=== PATIENT | female | born 1995 | race Caucasian/White ===

== ENCOUNTER 2018-12-06 13:21 | Emergency (ER) | payer MEDICAID ==
--- NOTE | 2018-12-06 14:10 | EDPHY ---
H & P Stated Complaint: vaginal bleeding starting 1300; 6-8 wks ; hx of misc and stillbirth Time Seen by Provider: 12/06/18 13:55 HPI/ROS: CHIEF COMPLAINT: , vaginal spotting HISTORY OF PRESENT ILLNESS: 23-year-old female SAB 1, demise age 27 weeks at last , currently 6-8 weeks with her 1st OBGYN appointment in 3 days, noticed small amount of spotting approximately 1 hr ago while she was at work standing. This has now resolved. No abdominal pain or cramping. Last sexual intercourse was this morning and no had no vaginal bleeding or abdominal pain at that time. She denies recent illness. Denies back or flank pain. Denies fever or chills. Primary gynecology: Dr Dodge at [facility] in [place], [place] REVIEW OF SYSTEMS: 10 systems reviewed and negative with the exception of the elements mentioned in the history of present illness PAST MEDICAL & SURGICAL HISTORY: SAB 1, demise age 27 weeks at last , SOCIAL HISTORY: Nonsmoker PHYSICAL EXAM (Prior to examination, patient consented to physical exam, hands were washed and my usual and customary physical exam procedures followed) 1) GENERAL: Well-developed, well-nourished, alert and oriented. Appears to be in no acute distress. 2) HEAD: Normocephalic, atraumatic 3) HEENT: Pupils equal, round, reactive to light bilaterally. Sclera anicteric. 4) NECK: Full range of motion, no meningeal signs. 5) LUNGS: Clear auscultation bilaterally, no wheezes, no rhonchi, no retractions. 6) HEART: Regular rate and rhythm, no murmur, no heave, no gallop. 7) ABDOMEN: No guarding, no rebound, no focal tenderness, negative McBurney's, negative Rodriguez's, negative Rovsing's, negative peritoneal sign, I am unable to elicit any abdominal pain on exam 8) MUSCULOSKELETAL: Moving all extremities, no focal areas of tenderness, no obvious trauma. No peripheral edema or discoloration. 9) BACK: No CVA tenderness, no midline vertebral tenderness, no fluctuance, no step-off, no obvious trauma, no visual or palpable abnormality. 10) SKIN: No rash, no petechiae. 11) Psychiatric: Patient is oriented X 3, there is no agitation. DIFFERENTIAL DIAGNOSIS: In no particular order in including but not limited to spontaneous , threatened , complete , - Personal History LMP (Females 10-55): Current Tetanus Diphtheria and Acellular Pertussis (TDAP): Yes - Medical/Surgical History Hx Asthma: No Hx Chronic Respiratory Disease: No Hx Diabetes: No Hx Cardiac Disease: No Hx Renal Disease: No Hx Cirrhosis: No Hx Alcoholism: No Hx HIV/AIDS: No Hx Splenectomy or Spleen Trauma: No - Social History Smoking Status: Never smoked Constitutional: Initial Vital Signs Temperature (C) 36.8 C 12/06/18 13:24 Heart Rate 96 12/06/18 13:24 Respiratory Rate 16 12/06/18 13:24 Blood Pressure 144/91 H 12/06/18 13:24 O2 Sat (%) 98 12/06/18 13:24 O2 Delivery Mode Room Air Allergies/Adverse Reactions: No Known Allergies Allergy (Unverified 12/06/18 13:23) Home Medications: Medication Instructions Recorded 12/06/18 Medical Decision Making ED Course/Re-evaluation: 4:06 p.m.: Re-evaluation. Patient resting comfortably. Discussed her diagnostic studies with her. She has been informed of limitations of ultrasonography at this point in her . She already has an appointment with her OBGYN in 2 days I recommend she keep. Recommend pelvic rest. Patient feels comfortable being discharged. All questions and concerns addressed by myself. Patient given my usual and customary discharge precautions and instructions regarding their clinical impression. Care of patient under supervision of primary supervising physician Dr Oliver . - Data Points Laboratory Results: Laboratory Results 12/06/18 14:28 12/06/18 14:28 Departure - Departure Disposition: Home, Routine, Self-Care Clinical Impression: Threatened Condition: Fair Instructions: Threatened Miscarriage (ED) Additional Instructions: If you develop abdominal pain, vaginal bleeding or spotting seek immediate medical attention. Keep her appointment in 2 days with your OBGYN. I recommend pelvic rest, no heavy lifting. Referrals: Sammi Monteiro DO [Doctor of Osteopathy] - 12/08/18 (You may also follow up with your own OBGYN)
[2018-12-06 14:49] LABS: PLATELET COUNT 285 10^3/uL (150-400)
[2018-12-06 16:12] VITALS: BP 130/91
== END 2018-12-06 16:55 | disposition home or self-care (01) ==
DX: O20.0 Threatened abortion (principal); Z3A.08 8 weeks gestation of pregnancy